=== PATIENT | female | born 1980 | race Two or more races ===

== ENCOUNTER 2016-06-15 11:21 | Emergency (ER) | payer SELFPAY ==
[~2016-06-15] VITALS: Ht 165.1 cm; Wt 45.4 kg
[2016-06-15 12:41] LABS: Basophils # (auto) 0 uL; Basophils % (auto) 0.6 % (0.0-2.0); DEFINITIVE VIEW TRANSMISSION; Eosinophils # (auto) 0.2 uL; Eosinophils % (auto) 2.1 % (0.0-7.0); Hematocrit 27.3 % (36.0-46.0); Hemoglobin 8.4 g/dL (12.2-16.2); Lymphocytes % (auto) 12.2 % (10.0-50.0); Mean Corpuscular Hemoglobin 23.6 pg (28.0-32.0); Mean Corpuscular Hgb Conc. 30.8 g/dL (32.0-36.0); Mean Corpuscular Volume 76.7 fL (80.0-100.0); Mean Platelet Volume 8.2 fL (7.4-10.4); Monocytes # (auto) 0.6 uL; Monocytes % (auto) 8.1 % (0.0-12.0); Neutrophils # (auto) 6.1 uL; Platelet Count (auto) 327 10^3/uL (140-450); Red Cell Distribution Width 15.7 % (11.6-16.0); White Blood Cell 7.9 10^3/uL (4.4-10.8)
[2016-06-15 12:48] LABS: INR 1.06 (0.9-1.15); Prothrombin Time 10.9 sec (9.37-12.3)
[2016-06-15] MEDS ORDERED: SODIUM CHLORIDE 0.9% 1,000 ML IV ONE (12:50)
[2016-06-15 13:00] LABS: Albumin 3.4 g/dL (3.4-5.0); BUN/Creatinine Ratio 19.7; Bilirubin, Total 0.2 mg/dL (0.2-1.0); Calcium 8.3 mg/dL (8.5-10.1); Total Protein 6.6 g/dL (6.4-8.2)
[2016-06-15 13:45] LABS: Urine Bilirubin Negative (Negative); Urine Color Yellow (Yellow); Urine Glucose Normal (Normal); Urine Ketone TRACE (Negative); Urine Mucus FEW (None Seen); Urine Nitrite Negative (Negative); Urine RBC <1 /hpf (0 - 4); Urine Squamous Epithelial Cell FEW /hpf (<5); Urine Urobilinogen Normal (Negative)
[2016-06-15 13:46] LABS: Urine Blood 1+ /uL (Negative)
[2016-06-15 14:30] VITALS: BP 105/70
== END 2016-06-15 18:34 | disposition home or self-care (01) ==
LOC: ER 11:24
DX: R55 Syncope and collapse (principal); D50.0 Iron deficiency anemia secondary to blood loss (chronic); R42 Dizziness and giddiness
CPT/HCPCS: 36415; 71020; 80053; 81001; 81025; 83735; 84443; 85025; 85379; 85610; 93005; 94761; 96360; 99285; J7030